=== PATIENT | female | born 1950 | race Caucasian/White ===

== ENCOUNTER → 2023-05-17 11:26 | Outpatient (REF) | payer MEDICARE, BC, SELFPAY | LOC: WDC 11:26 | PROVIDERS: ATTENDING PHYSICIAN Obstetrics & Gynecology; FAMILY PHYSICIAN Physician Assistant Medical | DX: Z12.31 Encounter for screening mammogram for malignant neoplasm of breast (principal) | CPT/HCPCS: 77063; 77067 ==

== ENCOUNTER 2024-01-23 06:09 | Outpatient (RCR) | payer MEDICARE, BC, SELFPAY | END 2024-01-23 23:59 | disposition home or self-care (01) | LOC: RPT 06:09 | PROVIDERS: ATTENDING PHYSICIAN Obstetrics & Gynecology; FAMILY PHYSICIAN Family Medicine | DX: R39.89 Other symptoms and signs involving the genitourinary system (principal); M62.89 Other specified disorders of muscle; R10.2 Pelvic and perineal pain; N30.10 Interstitial cystitis (chronic) without hematuria; Z73.6 Limitation of activities due to disability; R27.8 Other lack of coordination; M62.838 Other muscle spasm | CPT/HCPCS: 97163; 97530 ==

== ENCOUNTER 2024-02-28 13:03 | Outpatient (RCR) | payer MEDICARE, BC, SELFPAY | END 2024-02-28 23:59 | disposition home or self-care (01) | LOC: RPT 13:03 | PROVIDERS: ATTENDING PHYSICIAN Obstetrics & Gynecology; FAMILY PHYSICIAN Family Medicine | DX: R39.89 Other symptoms and signs involving the genitourinary system (principal); M62.89 Other specified disorders of muscle; R10.2 Pelvic and perineal pain; N30.10 Interstitial cystitis (chronic) without hematuria; Z73.6 Limitation of activities due to disability; R27.8 Other lack of coordination; M62.838 Other muscle spasm | CPT/HCPCS: 97110; 97530 ==

== ENCOUNTER 2024-03-20 09:02 | Outpatient (RCR) | payer MEDICARE, BC, SELFPAY | END 2024-03-20 23:59 | disposition home or self-care (01) | LOC: RPT 09:02 | PROVIDERS: ATTENDING PHYSICIAN Obstetrics & Gynecology; FAMILY PHYSICIAN Family Medicine | DX: R39.89 Other symptoms and signs involving the genitourinary system (principal); M62.89 Other specified disorders of muscle; R10.2 Pelvic and perineal pain; N30.10 Interstitial cystitis (chronic) without hematuria; Z73.6 Limitation of activities due to disability; R27.8 Other lack of coordination; M62.838 Other muscle spasm | CPT/HCPCS: 97530 ==

== ENCOUNTER 2024-05-09 09:13 | Outpatient (RCR) | payer MEDICARE, BC, SELFPAY | END 2024-05-09 11:27 | disposition home or self-care (01) | LOC: RPT 09:13 | PROVIDERS: ATTENDING PHYSICIAN Obstetrics & Gynecology; FAMILY PHYSICIAN Family Medicine | DX: R39.89 Other symptoms and signs involving the genitourinary system (principal); M62.89 Other specified disorders of muscle; R10.2 Pelvic and perineal pain; N30.10 Interstitial cystitis (chronic) without hematuria; R27.8 Other lack of coordination; M62.838 Other muscle spasm; Z73.6 Limitation of activities due to disability | CPT/HCPCS: 97530 ==

== ENCOUNTER → 2024-06-04 07:53 | Outpatient (REF) | payer MEDICARE, BC, SELFPAY | LOC: HWWDC 07:53 | PROVIDERS: ATTENDING PHYSICIAN Obstetrics & Gynecology; FAMILY PHYSICIAN Physician Assistant Medical | DX: Z12.31 Encounter for screening mammogram for malignant neoplasm of breast (principal) | CPT/HCPCS: 77063; 77067 ==

== ENCOUNTER 2024-12-03 10:10 | Outpatient (RCR) | payer MEDICARE, BC, SELFPAY | END 2024-12-03 23:59 | disposition home or self-care (01) | LOC: RPT 10:10 | PROVIDERS: ATTENDING PHYSICIAN Obstetrics & Gynecology; FAMILY PHYSICIAN Physician Assistant Medical | DX: N30.00 Acute cystitis without hematuria (principal); R39.82 Chronic bladder pain; M62.89 Other specified disorders of muscle; Z73.6 Limitation of activities due to disability | CPT/HCPCS: 97110; 97112; 97140; 97162; 97530 ==

== ENCOUNTER 2024-12-16 11:05 | Outpatient (RCR) | payer MEDICARE, BC, SELFPAY | END 2024-12-16 23:59 | disposition home or self-care (01) | LOC: RPT 11:05 | PROVIDERS: ATTENDING PHYSICIAN Obstetrics & Gynecology; FAMILY PHYSICIAN Physician Assistant Medical | DX: N30.00 Acute cystitis without hematuria (principal); R39.82 Chronic bladder pain; M62.89 Other specified disorders of muscle; Z73.6 Limitation of activities due to disability | CPT/HCPCS: 97112; 97140; 97530 ==

== ENCOUNTER 2025-01-08 09:25 | Outpatient (RCR) | payer MEDICARE, BC, SELFPAY | END 2025-01-08 23:59 | disposition home or self-care (01) | LOC: RPT 09:25 | PROVIDERS: ATTENDING PHYSICIAN Obstetrics & Gynecology; FAMILY PHYSICIAN Physician Assistant Medical | DX: N30.00 Acute cystitis without hematuria (principal); R39.82 Chronic bladder pain; M62.89 Other specified disorders of muscle; Z73.6 Limitation of activities due to disability | CPT/HCPCS: 97112; 97140 ==

== ENCOUNTER 2025-03-07 07:00 | Outpatient (RCR) | payer MEDICARE, BC, SELFPAY | END 2025-03-07 23:59 | disposition home or self-care (01) | LOC: RPT 07:00 | PROVIDERS: ATTENDING PHYSICIAN Obstetrics & Gynecology; FAMILY PHYSICIAN Physician Assistant Medical | DX: N30.00 Acute cystitis without hematuria (principal); R39.82 Chronic bladder pain; M62.89 Other specified disorders of muscle; Z73.6 Limitation of activities due to disability | CPT/HCPCS: 97110; 97112; 97140 ==

== ENCOUNTER 2025-03-26 12:35 | Outpatient (RCR) | payer MEDICARE, BC, SELFPAY | END 2025-03-26 23:59 | disposition home or self-care (01) | LOC: RPT 12:35 | PROVIDERS: ATTENDING PHYSICIAN Obstetrics & Gynecology; FAMILY PHYSICIAN Physician Assistant Medical | DX: N30.00 Acute cystitis without hematuria (principal); R39.82 Chronic bladder pain; M62.89 Other specified disorders of muscle; Z73.6 Limitation of activities due to disability | CPT/HCPCS: 97110; 97112; 97140 ==